=== PATIENT | female | born 1985 | race American Indian/Alaskan Native ===

== ENCOUNTER 2017-12-05 11:27 | Inpatient (IN) | payer MEDICAID ==
[2017-12-05 11:33] VITALS: O2SAT 99
--- NOTE | 2017-12-05 12:20 | PCM.BM ---
<Js Fernández - Last Filed: 12/05/17 12:17> Treatment Plan Problems - Problems identified on initial assessmt suicidal ideation Date Initiated: 12/05/17 Time Initiated: 12:18 Assessment reference: NA Status: Active suicide attempt Date Initiated: 12/05/17 Time Initiated: 12:18 Assessment reference: NA Status: Monitor depression Date Initiated: 12/05/17 Time Initiated: 12:19 Assessment reference: NA Status: Active Treatment assets and liabiliti Patient Assests: cooperative, motivated, self-reliant, ADL independent, physically healthy, cognitively intact Patient Liabilities: live alone, poor support system - Milieu Protocol Maintain good personal hygiene: daily Encourage regular showers, daily Remind patient to perform daily oral care, daily Assist patient to perform ADL's Conduct patient checks and document Observation sheet: Q15 minutes Maintain personal safety: every shift Educate patient to report safety concerns to staff, every shift Monitor environment for contraband/sharps Medication safety: Monitor for expected outcome, potential side effects: every shift, Assess barriers to learning: every shift, Assess readiness for medication education: every shift <Eliza Barrientos - Last Filed: 12/07/17 11:09> - Diagnosis (1) MDD (major depressive disorder) Status: Acute Interventions: 12/07/17 11:09 * Assess/adjust medications daily and /or as needed * See patient on an individual basis 7x/week to assess symptoms of depression * Monitor for side effects & effectiveness of medications *
--- NOTE | 2017-12-05 16:41 | C.PDOC ---
History Of Present Illness 32 year old female presents to the ED from [place] for psychiatric admission. Patient has been medically cleared and presents with no physical complaints at this time. Time Seen by Provider: 12/05/17 11:37 Chief Complaint (Nursing): Psychiatric Evaluation History Per: Patient History/Exam Limitations: no limitations Onset/Duration Of Symptoms: Hrs Current Symptoms Are (Timing): Still Present Additional History Per: Patient Past Medical History Reviewed: Historical Data, Nursing Documentation, Vital Signs Vital Signs: Last Vital Signs Temp 98.8 F 12/05/17 11:32 Pulse 111 H 12/05/17 16:12 Resp 16 12/05/17 11:32 BP 105/72 12/05/17 16:12 Pulse Ox 99 12/05/17 11:32 - Medical History PMH: Anxiety (Panic attacks), Asthma, Depression (Denies Depression) Denies: Chronic Kidney Disease Surgical History: No Surg Hx Family History: States: Unknown Family Hx - Social History Hx Alcohol Use: Yes Hx Substance Use: No - Immunization History Hx Tetanus Toxoid Vaccination: No Hx Influenza Vaccination: No Hx Pneumococcal Vaccination: No Review Of Systems Psych: Positive for: Other (psych admission ) Physical Exam - Physical Exam Appears: Non-toxic, No Acute Distress Skin: Normal Color, Warm, Dry Head: Atraumatic, Normacephalic Eye(s): bilateral: Normal Inspection Oral Mucosa: Moist Neck: Supple Chest: Symmetrical, No Deformity Cardiovascular: Rhythm Regular Respiratory: No Accessory Muscle Use Extremity: Normal ROM Neurological/Psych: Normal Speech, Normal Cognition ED Course And Treatment O2 Sat by Pulse Oximetry: 99 (on RA) Pulse Ox Interpretation: Normal Disposition - Disposition Disposition: HOSPITALIZED Disposition Time: 11:35 Condition: STABLE - Clinical Impression Clinical Impression: MDD (major depressive disorder) - Scribe Statement The provider has reviewed the documentation as recorded by the Scribe (Sanjana Unger) Provider Attestation: All medical record entries made by the Scribe were at my direction and personally dictated by me. I have reviewed the chart and agree that the record accurately reflects my personal performance of the history, physical exam, medical decision making, and the department course for this patient. I have also personally directed, reviewed, and agree with the discharge instructions and disposition.
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
[2017-12-07 06:24] VITALS: RESP 18; TEMP 98.6
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
[2017-12-07 14:06] VITALS: BP 107/70; PULSE 96
[2017-12-08] MEDS ORDERED: Pneumococcal 23-Valent Vaccine IM ONE (10:00)
== END 2017-12-07 11:00 | disposition home or self-care (01) | DRG 751 ==
LOC: C.ER 11:27 → C.5E 11:39
PROVIDERS: ADMIT Psychiatry & Neurology Psychiatry; ATTEND Psychiatry & Neurology Psychiatry
PROC: GZ3ZZZZ Medication Management (ICD-10-PCS; principal; 2017-12-05)
PROC: GZHZZZZ Group Psychotherapy (ICD-10-PCS; 2017-12-05)
PROC: GZ56ZZZ Individual Psychotherapy, Supportive (ICD-10-PCS; 2017-12-05)
DX: F33.2 Major depressive disorder, recurrent severe without psychotic features (principal); F41.0 Panic disorder [episodic paroxysmal anxiety]; J45.909 Unspecified asthma, uncomplicated